=== PATIENT | male | born 1960 | race African-American/Black ===

== ENCOUNTER 2021-04-09 11:21 | Inpatient (IN) | payer OTHER ==
[2021-04-09 20:01] LABS: HEMATOCRIT 42.3 % (35.4-49); MCH 31.2 pg (25.7-33.7); MEAN CELL VOLUME 94.4 fl (80-96); MEAN PLT VOLUME 8.6 fl (7.5-11.1); PLATELET COUNT 155 K/MM3 (134-434); RBC 4.48 M/mm3 (4.00-5.60); RDW 13.3 % (11.9-15.9); WHITE BLOOD COUNT 3.6 K/mm3 (4.0-10.0)
[2021-04-09 20:16] LABS: ALBUMIN 3.8 g/dl (3.4-5.0)
[2021-04-09 20:18] LABS: BLOOD UREA NITROGEN 10.9 mg/dL (7-18); CALCIUM 8.8 mg/dL (8.5-10.1)
[2021-04-09 20:21] LABS: BILIRUBIN,DIRECT 0.1 mg/dL (0.0-0.2); CREATININE 0.9 mg/dL (0.55-1.3)
[2021-04-09 20:23] LABS: BILIRUBIN,TOTAL 0.8 mg/dL (0.2-1); TOT PROT 7.2 g/dl (6.4-8.2)
[2021-04-09] MEDS: PHENYTOIN NA EXTENDED 100 MG CAPSULE (FP) PO SCH (21:30)
[2021-04-09] MEDS: HEPARIN NA (PORCINE) 5,000 UNITS/ML 1ML VIAL SQ SCH (21:30)
[2021-04-09] MEDS: levETIRAcetam 500 MG TABLET (FP) PO SCH (21:30)
[2021-04-10] MEDS: PHENYTOIN NA EXTENDED 100 MG CAPSULE (FP) PO SCH ×3 (05:40→22:13)
[2021-04-10] MEDS: levETIRAcetam 500 MG TABLET (FP) PO SCH ×2 (09:36→22:13)
[2021-04-10] MEDS: HEPARIN NA (PORCINE) 5,000 UNITS/ML 1ML VIAL SQ SCH ×2 (09:36→22:12)
[2021-04-10] MEDS: POLYETHYLENE GLYCOL 3350 119 GM BTL PO SCH (09:36)
[2021-04-11] MEDS: PHENYTOIN NA EXTENDED 100 MG CAPSULE (FP) PO SCH ×2 (06:38→13:47)
[2021-04-11] MEDS: HEPARIN NA (PORCINE) 5,000 UNITS/ML 1ML VIAL SQ SCH (09:47)
[2021-04-11] MEDS: levETIRAcetam 500 MG TABLET (FP) PO SCH (09:47)
[2021-04-11 09:52] VITALS: BP 106/78; PULSE 74; TEMP 98.2
[2021-04-11] MEDS: POLYETHYLENE GLYCOL 3350 119 GM BTL PO SCH (11:15)
== END 2021-04-11 16:10 | disposition home or self-care (01) | DRG 101 ==
LOC: J4S 16:23
PROVIDERS: ADMIT Psychiatry & Neurology Neurology; ATTEND Psychiatry & Neurology Neurology
PROC: 4A10X4Z Monitoring of Central Nervous Electrical Activity, External Approach (ICD-10-PCS; principal; 2021-04-09)
DX: G40.909 Epilepsy, unspecified, not intractable, without status epilepticus (principal); F81.9 Developmental disorder of scholastic skills, unspecified
CPT/HCPCS: 36415; 80048; 80076; 85027; 93005; 93010; 95705; J1644